=== PATIENT | male | born 1955 | race Caucasian/White ===

== ENCOUNTER 2021-04-24 11:18 | Emergency (ER) | payer MEDICARE, OTHER ==
[2021-04-24] MEDS ORDERED: SODIUM CHLORIDE 0.9% 1,000 ML IV STA ×2 (11:59→14:58)
--- NOTE | 2021-04-24 12:01 | ED Physician Documentation ---
History of Present Illness - Stated complaint Stated Complaint: RAPID HEART RATE - Chief complaint Chief Complaint: Cardiac - History obtained from History obtained from: Patient, Family - History of Present Illness Timing: Enter time (0300), Last night - Additonal information Additional information: 66-year-old male with a history of pulmonary fibrosis, afib, aortic valve replacement, CHF is visiting here from [place] and overnight he has developed a rapid heart rate that has persisted. He denies chest pain. He is followed by cardiology in [place] and pulmonology at [facility] he has been attempting to get on the transplant list. 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 He has had intermittent atrial fibrillation and had a last episode in 2018. He is not on anticoagulation. This morning about 3am he began having some shortness of breath. His pulse ox kept reading a rapid rate. He had a syncopal episode while on the couch with a brief seizure and then came to. Review of Systems Constitutional: denies: Fever Eyes: denies: Decreased vision Ears: denies: Ear pain Nose: denies: Rhinorrhea / runny nose, Congestion Throat: denies: Sore throat Cardiac: denies: Chest pain / pressure, Palpitations Respiratory: reports: Dyspnea, Cough GI: denies: Abdominal Pain, Nausea, Vomiting, Constipation, Diarrhea : denies: Dysuria, Frequency Skin: denies: Rash Musculoskeletal: denies: Neck pain, Back pain, Extremity pain Neurologic: denies: Generalized weakness, Focal weakness, Numbness PD PAST MEDICAL HISTORY - Allergies Allergies/Adverse Reactions: Allergies Allergy/AdvReac Type Severity Reaction Status Date / Time No Known Drug Allergies Allergy Verified 04/24/21 11:34 PD ED PE NORMAL - Vitals Vital signs reviewed: Yes (Tachycardic tachypneic and hypotensive) - General General: Alert and oriented X 3, Well developed/nourished, Other (Galar[place] appearing elderly male who readily answers questions) - HEENT HEENT: Atraumatic, PERRL, EOMI - Neck Neck: Supple, no meningeal sign, No bony TTP - Cardiac Cardiac: No murmur, Other (Rapid irregular heart rate) - Respiratory Respiratory: No respiratory distress, Clear bilaterally - Abdomen Abdomen: Soft, Non tender - Back Back: No CVA TTP, No spinal TTP - Derm Derm: Normal color, Warm and dry, No rash - Extremities Extremities: No deformity, No edema - Neuro Neuro: Alert and oriented X 3, hospice administrator 2-12 intact, No motor deficit, No sensory deficit, Normal speech Eye Opening: Spontaneous Motor: Obeys Commands Verbal: Oriented GCS Score: 15 - Psych Psych: Normal mood, Normal affect Results - Vitals Vitals: Vital Signs - 24 hr 04/24/21 04/24/21 04/24/21 11:27 12:04 13:02 Temperature 36.3 C L 36.6 C 36.7 C Heart Rate 136 H 155 H 138 H Respiratory 28 H 35 H 32 H Rate Blood Pressure 68/43 L 104/60 84/61 L O2 Saturation 97 97 98 04/24/21 04/24/21 04/24/21 14:15 14:30 15:35 Temperature 36.4 C L Heart Rate 114 H 125 H 122 H Respiratory 24 24 40 H Rate Blood Pressure 88/62 L 78/62 L 80/46 L O2 Saturation 97 96 97 04/24/21 16:07 Temperature Heart Rate 124 H Respiratory 33 H Rate Blood Pressure 79/58 L O2 Saturation 97 Oxygen O2 Source Simple Mask - EKG (time done) 1123 Rate: Rate (enter#) (143) Rhythm: Atrial fibrillation Intervals: LBBB Compare to prior EKG: Old EKG unavailable Computer interpretation: Disagree with computer (I believe the rythm is afib) - Labs Labs: Laboratory Tests 04/24/21 04/24/21 04/24/21 12:05 12:05 12:05 WBC 13.4 H RBC 4.39 L Hgb 13.2 L Hct 41.5 L MCV 94.5 H MCH 30.1 MCHC 31.8 L RDW 13.1 Plt Count 235 MPV 7.8 Neut # (Auto) 11.5 H Lymph # (Auto) 0.6 L [place] # (Auto) 1.1 H Eos # (Auto) 0.2 Baso # (Auto) 0.1 Absolute Nucleated RBC 0.00 Nucleated RBC % 0.0 Sodium 131 L Potassium 4.4 Chloride 91 L Carbon Dioxide 29 Anion Gap 11.0 BUN 35 H Creatinine 1.5 H Estimated GFR (MDRD) 47 L Glucose 120 H Calcium 9.4 Total Bilirubin 0.7 AST 21 ALT 15 Alkaline Phosphatase 46 Troponin I High Sens B-Natriuretic Peptide 387 H Total Protein 6.7 Albumin 3.8 Globulin 2.9 Albumin/Globulin Ratio 1.3 Lipase 49 Urine Color Urine Clarity Urine pH Ur Specific [place] Urine Protein Urine Glucose (UA) Urine Ketones Urine Occult Blood Urine Nitrite Urine Bilirubin Urine Urobilinogen Ur Leukocyte Esterase Ur Microscopic Review Urine Culture Comments Nasal Adenovirus (PCR) Nasal B. parapertussis DNA (PCR) Nasal Coronavir 229E PCR Nasal Coronavir HKU1 PCR Nasal Coronavir NL63 PCR Nasal Coronavir OC43 PCR Nasal Enterovir/Rhinovir PCR Nasal Influenza B PCR Nasal Influenza A PCR Nasal Parainfluen 1 PCR Nasal Parainfluen 2 PCR Nasal Parainfluen 3 PCR Nasal Parainfluen 4 PCR Nasal RSV (PCR) Nasal B.pertussis DNA PCR Nasal C.pneumoniae (PCR) Cosme Human Metapneumo PCR Nasal M.pneumoniae (PCR) Nasal SARS-CoV-2 (PCR) 04/24/21 04/24/21 04/24/21 12:05 14:30 15:37 WBC RBC Hgb Hct MCV MCH MCHC RDW Plt Count MPV Neut # (Auto) Lymph # (Auto) [place] # (Auto) Eos # (Auto) Baso # (Auto) Absolute Nucleated RBC Nucleated RBC % Sodium Potassium Chloride Carbon Dioxide Anion Gap BUN Creatinine Estimated GFR (MDRD) Glucose Calcium Total Bilirubin AST ALT Alkaline Phosphatase Troponin I High Sens 231.7 H* B-Natriuretic Peptide Total Protein Albumin Globulin Albumin/Globulin Ratio Lipase Urine Color YELLOW Urine Clarity CLEAR Urine pH 5.5 Ur Specific [place] 1.020 Urine Protein NEGATIVE Urine Glucose (UA) NEGATIVE Urine Ketones NEGATIVE Urine Occult Blood NEGATIVE Urine Nitrite NEGATIVE Urine Bilirubin NEGATIVE Urine Urobilinogen 0.2 (NORMAL) Ur Leukocyte Esterase NEGATIVE Ur Microscopic Review NOT INDICATED Urine Culture Comments NOT INDICATED Nasal Adenovirus (PCR) NOT DETECTED Nasal B. parapertussis DNA (PCR) NOT DETECTED Nasal Coronavir 229E PCR NOT DETECTED Nasal Coronavir HKU1 PCR NOT DETECTED Nasal Coronavir NL63 PCR NOT DETECTED Nasal Coronavir OC43 PCR NOT DETECTED Nasal Enterovir/Rhinovir PCR NOT DETECTED Nasal Influenza B PCR NOT DETECTED Nasal Influenza A PCR NOT DETECTED Nasal Parainfluen 1 PCR NOT DETECTED Nasal Parainfluen 2 PCR NOT DETECTED Nasal Parainfluen 3 PCR NOT DETECTED Nasal Parainfluen 4 PCR NOT DETECTED Nasal RSV (PCR) NOT DETECTED Nasal B.pertussis DNA PCR NOT DETECTED Nasal C.pneumoniae (PCR) NOT DETECTED Cosme Human Metapneumo PCR NOT DETECTED Nasal M.pneumoniae (PCR) NOT DETECTED Nasal SARS-CoV-2 (PCR) NOT DETECTED - Rads (name of study) chest Radiology: Prelim report reviewed (Impression: Low lung volumes with generalized interstitial social prominence, right worse than left. Please consider pulmonary edema versus atypical infection, including Covid pneumonia.), EMP read indepedently, See rad report Procedures - IVC sono (time) 1150 Bedside IVC sono: IVC measures (cm) (1.02), Dehydration (est 1-2 liter deficit) PD MEDICAL DECISION MAKING - ED course Complexity details: reviewed results, re-evaluated patient, considered differential, d/w patient, d/w family ED course: 66 y/o male with history of intermittent afib not on anticoagulation has been in rapid afib since 299 and arrives to the ED with hypotension. He is found to be dehydrated on interrogation of the IVC and he is administered IV saline. I considered IV diltiazem and consulted his pump servicer in [place] (dehydrogenation operator head was Dr. Parisa Denis) and she recommended administration of IV metoprolol which was administered in 5mg doses and resulted in a lower of the heart rate to the 120 range. The patient continues to be hypotensive and more saline is administered. Cardioversion is indicated and we do not have access to [facility]. All of the [facility] are full today. I considered transfer to an ED with capability and the team at [facility] was willing but we were not able to consult with the pump servicer as the transfer center was overwhelmed and unable to answer the phone. I consulted Dr. Rajput at [facility] and he was willing to accept the patient provided a bed is available. Calls to the were answered with potential wait list. The patient was administered IV heparin Dr. Rajput called back and recommended administration of amioderone over 30 min bolus and drip. This was done with further improvement in the patient's heart rate. He remained hypotensive in the [address] well[address] Peewee Freeman cardiology at [facility] in [place] has called us back and he is willing to accept the patient in transfer and recommends the amioderone and eliquis. The patient himself feels well at the time of transfer. . Departure - Departure Disposition: 02 Transfer Acute Care Hosp Clinical Impression: Atrial fibrillation with RVR Atrial fibrillation Qualifiers: Atrial fibrillation type: persistent (not longstanding) Qualified Code(s): I48.19 - Other persistent atrial fibrillation Condition: Serious
[2021-04-24 12:11] LABS: BASOPHILS # (AUTO) 0.1 10^3/uL (0.0-0.1); BASOPHILS % (AUTO) 0.4 %; EOSINOPHILS # (AUTO) 0.2 10^3/uL (0.0-0.7); EOSINOPHILS % (AUTO) 1.1 %; HCT - HEMATOCRIT 41.5 % (42.0-52.0); HGB - HEMOGLOBIN 13.2 g/dL (14.0-18.0); LYMPHOCYTES # (AUTO) 0.6 10^3/uL (1.5-3.5); LYMPHOCYTES % (AUTO) 4.3 %; MEAN CORPUSCULAR HEMOGLOBIN 30.1 pg (27.0-31.0); MEAN CORPUSCULAR HGB CONC 31.8 g/dL (32.0-36.0); MEAN CORPUSCULAR VOLUME 94.5 fL (80.0-94.0); MEAN PLATELET VOLUME 7.8 fL (7.4-11.4); MONOCYTES # (AUTO) 1.1 10^3/uL (0.0-1.0); NEUTROPHILS # (AUTO) 11.5 10^3/uL (1.5-6.6); NEUTROPHILS % (AUTO) 85.8 %; PLT - PLATELET COUNT 235 10^3/uL (130-450); RED BLOOD COUNT 4.39 10^6/uL (4.70-6.10); RED CELL DISTRIBUTION WIDTH 13.1 % (12.0-15.0); WHITE BLOOD COUNT 13.4 x10^3/uL (4.8-10.8)
--- NOTE | 2021-04-24 12:21 | XRAY Report ---
PROCEDURE: Chest 1 View X-Ray INDICATIONS: chest pain TECHNIQUE: One view of the chest was acquired. COMPARISON: None FINDINGS: Surgical changes and devices: A pacer device can be seen. Sternotomy changes are noted. Lungs and pleura: Low lung volumes can be seen, causing a crowded appearance to the lung markings. M ild generalized interstitial prominence can be seen, right worse than left. Mediastinum: Mediastinal contours appear normal. Heart size is normal. Bones and chest wall: No suspicious bony lesions. Age-appropriate degenerative changes are seen. Overlying soft tissues appear unremarkable. IMPRESSION: Low lung volumes with generalized interstitial prominence, right worse than left. Please consider pul monary edema versus atypical infection, including COVID pneumonia. Reviewed by: Medardo Lutz MD on 04/24/2021 11:20 AM [facility] Approved by: Medardo Lutz MD on 04/24/2021 11:20 AM [facility] Station ID: [id number]
[2021-04-24] MEDS: diltiaZEM INJ 5 MG/ML VIAL IVP STA ×2 (12:57→13:01)
[2021-04-24] MEDS ORDERED: METOPROLOL 5 MG/5 ML VIAL IVP STA ×3 (12:57→13:37)
[2021-04-24 13:16] LABS: ALBUMIN 3.8 g/dL (3.2-5.5); ALBUMIN/GLOBULIN RATIO 1.3 (1.0-2.2); BILIRUBIN,TOTAL 0.7 mg/dL (0.2-1.0); CALCIUM 9.4 mg/dL (8.5-10.3); CREATININE 1.5 mg/dL (0.6-1.2); POTASSIUM 4.4 mmol/L (3.5-5.0); TOTAL PROTEIN 6.7 g/dL (6.7-8.2)
[2021-04-24] MEDS ORDERED: HEPARIN 25000UNITS/500ML (D5W) 25,000 UNIT/500 ML BAG IV SCH (15:00)
[2021-04-24] MEDS ORDERED: AMIODARONE 150 MG/100 ML 100 ML IV ONE (15:39)
[2021-04-24 15:40] LABS: CORONAVIRUS 229E-RESP PCR NOT DETECTED; CORONAVIRUS HKU1-RESP PCR NOT DETECTED; CORONAVIRUS NL63-RESP PCR NOT DETECTED; CORONAVIRUS OC43-RESP PCR NOT DETECTED; HUMAN METAPNEUMOVIRUS NOT DETECTED; INFLUENZA A- RESP PCR PANEL NOT DETECTED; RHINOVIRUS/ENTEROVIRUS NOT DETECTED; SARS-CoV-2 -RESP PCR PANEL NOT DETECTED
[2021-04-24] MEDS ORDERED: AMIODARONE 360 MG/200 ML 200 ML IV ONE (15:40)
[2021-04-24 15:41] LABS: B. PARAPERTUSSIS- RESP PCR PAN NOT DETECTED; B. PERTUSSIS- RESP PCR PANEL NOT DETECTED; C. PNEUMONIAE- RESP PCR PANEL NOT DETECTED; INFLUENZA B - RESP PCR PANEL NOT DETECTED; M. PNEUMONIAE- RESP PCR PANEL NOT DETECTED; PARAINFLUENZA VIRUS 1 NOT DETECTED; PARAINFLUENZA VIRUS 2 NOT DETECTED; PARAINFLUENZA VIRUS 3 NOT DETECTED; PARAINFLUENZA VIRUS 4 NOT DETECTED; RSV- RESP PCR PANEL NOT DETECTED
[2021-04-24 15:42] LABS: BILIRUBIN,URINE NEGATIVE (NEGATIVE); GLUCOSE, URINE (UA) NEGATIVE (NEGATIVE); KETONES,URINE (UA) NEGATIVE (NEGATIVE); LEUKOCYTE ESTERASE, URINE NEGATIVE (NEGATIVE); NITRITE,URINE NEGATIVE (NEGATIVE); OCCULT BLOOD,URINE NEGATIVE (NEGATIVE); PH,URINE 5.5 PH (5.0-7.5); PROTEIN,URINE NEGATIVE (NEGATIVE); UROBILINOGEN,URINE 0.2 (NORMAL) E.U./dL (NORMAL)
[2021-04-24 15:43] LABS: CLARITY,URINE CLEAR (CLEAR)
[2021-04-24 16:07] VITALS: BP 79/58
[2021-04-24] MEDS ORDERED: APIXABAN 5 MG TABLET PO STA (16:31)
== END 2021-04-24 17:32 | disposition short-term general hospital (02) ==
LOC: ED 11:18
DX: I48.19 Other persistent atrial fibrillation (principal); Z95.2 Presence of prosthetic heart valve; E86.0 Dehydration; I95.9 Hypotension, unspecified; Z20.822 Contact with and (suspected) exposure to COVID-19
CPT/HCPCS: 36415; 71045; 80053; 81003; 83690; 83880; 84484; 85025; 87631; 93005; 96361; 96365; 96375; 96376; 99284; 99285; A9270; J0282; 0202U; 81001; 87086